=== PATIENT | female | born 1980 | race Caucasian/White ===

== ENCOUNTER → 2016-11-30 16:28 | Outpatient (CLI) | payer BC | END | disposition home or self-care (01) | LOC: D.MAMMO 09:30 | DX: N64.4 Mastodynia (principal) ==

== ENCOUNTER → 2017-05-21 16:32 | Outpatient (CLI) | payer MEDICAID | END | disposition home or self-care (01) | LOC: D.MAMMO 13:00 | DX: R92.8 Other abnormal and inconclusive findings on diagnostic imaging of breast (principal) ==

== ENCOUNTER → 2018-05-26 18:46 | Outpatient (CLI) | payer MEDICAID | END | disposition home or self-care (01) | LOC: D.MAMMO 10:15 | DX: Z12.31 Encounter for screening mammogram for malignant neoplasm of breast (principal) ==

== ENCOUNTER 2019-05-27 09:00 | Outpatient (CLI) | payer MEDICAID | END 2019-05-27 10:00 | disposition home or self-care (01) | LOC: D.MAMMO 09:00 | PROVIDERS: ATTEND Nurse Practitioner Family | DX: Z12.31 Encounter for screening mammogram for malignant neoplasm of breast (principal) ==

== ENCOUNTER 2020-03-17 10:00 | Outpatient (CLI) | payer MEDICAID | END 2020-03-17 10:15 | disposition home or self-care (01) | LOC: D.MAMMO 10:00 | PROVIDERS: ATTEND Student in an Organized Health Care Education/Training Program | DX: N64.4 Mastodynia (principal) ==